=== PATIENT | male | born 1970 | race African-American/Black ===

== ENCOUNTER 2019-08-25 15:01 | Emergency (ER) | payer OTHER ==
[~2019-08-25] VITALS: Ht 203.2 cm; Wt 93.0 kg
[2019-08-25 15:15] LABS: URINE BILIRUBIN NEGATIVE (Negative); URINE BLOOD NEGATIVE (Negative); URINE COLOR YELLOW; URINE GLUCOSE-RANDOM NEGATIVE (Negative); URINE KETONES NEGATIVE (Negative); URINE LEUKOCYTES-REFLEX 1+ (Negative); URINE NITRITE-REFLEX NEGATIVE (Negative); URINE PROTEIN NEGATIVE (Negative); URINE SPECIFIC GRAVITY >= 1.030 (1.005-1.030)
[2019-08-25 15:39] LABS: ABSOLUTE EOSINOPHILS 0.1 thou/uL (0.0-0.7); ABSOLUTE LYMPHOCYTES 1.4 thou/uL (0.8-5.3); ABSOLUTE MONOCYTES 0.6 thou/uL (0.0-1.2); ABSOLUTE NEUTROPHILS 3.4 thou/uL (1.6-8.1); BASOPHILS 0.6 %; EOSINOPHILS 1.9 %; HEMATOCRIT 39.1 % (42.0-52.0); HEMOGLOBIN 13.4 gm/dL (14.0-18.0); LYMPHOCYTES 25.9 %; MCH 29.1 pg (26.0-34.0); MCHC 34.3 g/dL (28.0-37.0); MONOCYTES 10.9 %; MPV 8.8 fl. (7.2-11.1); NUCLEATED RBCS 0 /100WBC; PLATELET COUNT* 225 thou/uL (150-400); POLYS 60.7 %; RBC 4.61 mil/uL (4.50-6.00); RDW-CV 14.3 % (10.5-14.5); WBC 5.6 thou/uL (4.0-11.0)
[2019-08-25 15:53] LABS: URINE CLARITY HAZY
[2019-08-25 15:54] LABS: CASTS None Seen /LPF (None Seen); CRYSTALS None Seen /LPF (None Seen); MUCUS 0-3 Light strn/LPF (None Seen); SQUAMOUS 4-10 Moderate /LPF (0-3); URINE RBC None Seen /HPF (0-2); URINE WBC-REFLEX >25 Many /HPF (0-5)
[2019-08-25 15:55] LABS: BACTERIA-REFLEX 1-9 Few /HPF (None Seen)
[2019-08-25 15:55] LABS: CALCIUM 8.8 mg/dL (8.5-10.1); CREATININE 1.2 mg/dL (0.6-1.3); POTASSIUM 3.9 mmol/L (3.5-5.1)
[2019-08-25 16:01] LABS: ALBUMIN 3.7 g/dL (3.4-5.0); TOTAL BILIRUBIN 0.3 mg/dL (<0.1-1.0); TOTAL PROTEIN 7.3 g/dL (6.4-8.2)
[2019-08-25] MEDS ORDERED: DOXYCYCLINE 10100 MG PO (16:59)
[2019-08-25 17:21] VITALS: BP 128/72
== END 2019-08-25 17:23 | disposition home or self-care (01) ==
LOC: M.ERS 15:01
PROVIDERS: Physician Assistant
DX: N39.0 Urinary tract infection, site not specified (principal); R36.9 Urethral discharge, unspecified

== ENCOUNTER 2019-09-08 13:13 | Emergency (ER) | payer OTHER ==
[~2019-09-08] VITALS: Ht 203.2 cm; Wt 93.0 kg
[~2019-09-08 13:13] MED LIST: DOXYCYCLINE 10100 MG PO
[2019-09-08] MEDS ORDERED: ZANAFLEX4 MG PO (15:20)
[2019-09-08] MEDS ORDERED: IBUPROFEN 800800 M1 PO (15:20)
[2019-09-08 15:30] VITALS: BP 166/83
== END 2019-09-08 15:31 | disposition home or self-care (01) ==
LOC: M.ERS 13:13
DX: S63.592A Other specified sprain of left wrist, initial encounter (principal); S80.02XA Contusion of left knee, initial encounter; S40.211A Abrasion of right shoulder, initial encounter; V29.49XA Motorcycle driver injured in collision with other motor vehicles in traffic accident, initial encounter; Y93.89 Activity, other specified; Y92.89 Other specified places as the place of occurrence of the external cause; Y99.8 Other external cause status

== ENCOUNTER 2019-11-04 17:50 | Emergency (ER) | payer OTHER ==
[~2019-11-04] VITALS: Ht 203.2 cm; Wt 93.0 kg
[~2019-11-04 17:50] MED LIST changes: +IBUPROFEN 800800 M1 PO; +ZANAFLEX4 MG PO
[2019-11-04 18:10] LABS: URINE BILIRUBIN NEGATIVE (Negative); URINE BLOOD NEGATIVE (Negative); URINE CLARITY CLEAR; URINE COLOR YELLOW; URINE GLUCOSE-RANDOM NEGATIVE (Negative); URINE KETONES TRACE (Negative); URINE LEUKOCYTES-REFLEX 1+ (Negative); URINE NITRITE-REFLEX NEGATIVE (Negative); URINE PROTEIN NEGATIVE (Negative); URINE SPECIFIC GRAVITY 1.025 (1.005-1.030); URINE UROBILINOGEN 0.2 E.U./dl (0.2-1.0)
[2019-11-04] MEDS ORDERED: CIPRO500 MG PO (18:17)
[2019-11-04 18:20] LABS: BACTERIA-REFLEX >30 Many /HPF (None Seen); CASTS None Seen /LPF (None Seen); CRYSTALS None Seen /LPF (None Seen); MUCUS >6 Heavy strn/LPF (None Seen); SQUAMOUS 4-10 Moderate /LPF (0-3); URINE RBC 0-2 Rare /HPF (0-2)
[2019-11-04 18:47] VITALS: BP 142/106
== END 2019-11-04 18:49 | disposition home or self-care (01) ==
LOC: M.ERS 17:50
PROVIDERS: Nurse Practitioner Family
DX: N34.2 Other urethritis (principal); N30.00 Acute cystitis without hematuria

== ENCOUNTER 2019-11-29 19:44 | Emergency (ER) | payer OTHER ==
[~2019-11-29] VITALS: Ht 203.2 cm; Wt 95.3 kg
[~2019-11-29 19:44] MED LIST changes: +CIPRO500 MG PO
[2019-11-29 20:12] LABS: URINE BILIRUBIN NEGATIVE (Negative); URINE BLOOD NEGATIVE (Negative); URINE CLARITY CLEAR; URINE COLOR YELLOW; URINE GLUCOSE-RANDOM NEGATIVE (Negative); URINE KETONES TRACE (Negative); URINE LEUKOCYTES-REFLEX NEGATIVE (Negative); URINE NITRITE-REFLEX NEGATIVE (Negative); URINE PROTEIN NEGATIVE (Negative); URINE SPECIFIC GRAVITY >= 1.030 (1.005-1.030); URINE UROBILINOGEN 0.2 E.U./dl (0.2-1.0)
[2019-11-29 20:45] LABS: ABSOLUTE EOSINOPHILS 0.1 thou/uL (0.0-0.7); ABSOLUTE LYMPHOCYTES 1.7 thou/uL (0.8-5.3); ABSOLUTE MONOCYTES 0.5 thou/uL (0.0-1.2); ABSOLUTE NEUTROPHILS 2.8 thou/uL (1.6-8.1); BASOPHILS 0.8 %; EOSINOPHILS 1.1 %; HEMATOCRIT 40.9 % (42.0-52.0); HEMOGLOBIN 13.6 gm/dL (14.0-18.0); LYMPHOCYTES 32.4 %; MCH 28.2 pg (26.0-34.0); MCHC 33.3 g/dL (28.0-37.0); MCV 84.7 fL (80.0-100.0); MONOCYTES 10.5 %; NUCLEATED RBCS 0 /100WBC; PLATELET COUNT* 188 thou/uL (150-400); POLYS 55.2 %; RBC 4.83 mil/uL (4.50-6.00); RDW-CV 13.7 % (10.5-14.5); WBC 5.1 thou/uL (4.0-11.0)
[2019-11-29 20:48] LABS: CALCIUM 8.9 mg/dL (8.5-10.1); CREATININE 1.1 mg/dL (0.6-1.3)
[2019-11-29] MEDS ORDERED: CIPROFLOXACIN500 M1 PO (21:24)
[2019-11-29 21:30] VITALS: BP 139/80
== END 2019-11-29 21:30 | disposition home or self-care (01) ==
LOC: M.ERS 19:44
PROVIDERS: Emergency Medicine
DX: N20.0 Calculus of kidney (principal); Z79.899 Other long term (current) drug therapy

== ENCOUNTER 2021-06-27 17:12 | Emergency (ER) | payer OTHER ==
[~2021-06-27] VITALS: Ht 203.2 cm; Wt 111.1 kg
[~2021-06-27 17:12] MED LIST changes: +CIPROFLOXACIN500 M1 PO
[2021-06-27 19:20] LABS: HEMATOCRIT 42.3 % (42.0-52.0); HEMOGLOBIN 13.7 gm/dL (14.0-18.0); MCH 27.1 pg (26.0-34.0); MCHC 32.3 g/dL (28.0-37.0); MCV 83.9 fL (80.0-100.0); MPV 9.1 fl. (7.2-11.1); RBC 5.04 mil/uL (4.50-6.00); RDW-CV 14.1 % (10.5-14.5); WBC 4.2 thou/uL (4.0-11.0)
[2021-06-27 19:25] LABS: CALCIUM 8.8 mg/dL (8.5-10.1); CREATININE 1.2 mg/dL (0.6-1.3)
[2021-06-27 20:32] VITALS: BP 140/82
--- NOTE | 2021-06-29 13:12 | EKG ---
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1970 Requested By: Ashlyn Escamilla Order Number: [id number] MD: Loco Logan Measurements Intervals [place] Rate: 66 P: 71 MS: 188 QRS: 70 QRSD: 112 T: 58 QT: 400 QTc: 420 Interpretive Statements Sinus rhythm Borderline intraventricular conduction delay RSR' in V1 or V2, probably normal variant No previous ECG available for comparison Electronically Signed On 06-29-2021 13:12:42 [employer] by Loco Logan [email or web address] <ELECTRONICALLY SIGNED> By: Loco Logan MD, FAC 06/29/21 1312 1839 1839 Loco Logan MD, [facility] /EPI
== END 2021-06-27 20:32 | disposition home or self-care (01) ==
LOC: M.ERS 17:12
PROVIDERS: Physician Assistant
DX: U07.1 COVID-19 (principal); J44.9 Chronic obstructive pulmonary disease, unspecified